=== PATIENT | male | born 1950 | race Caucasian/White ===

== ENCOUNTER → 2016-11-02 | Outpatient (CLI) | payer MEDICARE, BC ==
--- NOTE | 2016-11-02 16:05 | PN ---
Fish is 66, coming in for followup regarding his obstructive sleep apnea. The patient was last seen in my office approximately 6 months ago. He has no specific complaints. He is using CPAP at a pressure of 9 cm of water and the pressure was dropped during his latest this evaluation. He is using a full-face mask, AirFit F10 mask type. He is very compliant with CPAP therapy and he is waking up refreshed and is still benefiting from his treatment. Nevertheless, his machine has not been delivering the appropriate amount of humidity. He is set up for a humidity level up to 5, and despite that the water chamber remains intact and there is no utilization of any humidity; and he is waking up with a dry mouth. His baseline apnea-hypopnea index is 12, and the patient was admitted receiving CPAP therapy at a pressure of 9 cm of water. BP is 116/68. Pulse is 70, respiration 16, temperature 97.9, saturation 98% on room air. Weight is 202. BMI is 32.1. Ney score is 6. GENERAL APPEARANCE: Calm, comfortable. HEENT: Negative for JVD. No goiter or neck masses. Crowding of posterior pharynx. LUNGS: Clear to auscultation. HEART: Sounds are regular rate and rhythm. Normal S1, S2. No S3. No murmurs. ABDOMEN: Soft. No organomegaly. EXTREMITIES: No edema. No cyanosis or clubbing. IMPRESSION: 1. Symptomatic obstructive sleep apnea with an AHI of 12, currently on CPAP pressure of 9 cm of water. 2. Malfunctioning humidity on his CPAP machine with increased dry mouth. 3. Body mass index of 32.1. PLAN: 1. Will ask [facility] to evaluate the patient's CPAP machine. The humidification system is malfunctioning. Will either repair the machine or replace it. 2. Continue using the AirFit F10 full-face mask. 3. Keep the pressure at 9 cm of water. 4. Will check his compliancy within 6 months to a year.
== END | disposition home or self-care (01) ==
LOC: SLEEP 13:09
PROVIDERS: ATTEND Internal Medicine Critical Care Medicine
DX: G47.33 Obstructive sleep apnea (adult) (pediatric) (principal)

== ENCOUNTER → 2018-05-09 | Outpatient (CLI) | payer MEDICARE ==
--- NOTE | 2018-05-09 20:16 | PN ---
PROGRESS NOTE This is a 67-year-old male patient with an established diagnosis of obstructive sleep apnea. The patient has an AHI of 12. He is coming in for a routine check and he has no specific complaints. The patient is using a DreamStation Respironics CPAP unit which is at the pressure of 9 cm of water. He is in need of his equipment. His CPAP humidity chamber needs to be replaced. At the same time he is in need of hose and a new mask. I offered this patient AirFit full face mask which he felt was quite comfortable and this replaced AirFit F10 full-face mask that he has been using for many years. He continues to benefit from the treatment. His weight has been stable. No new onset comorbidities. No other medical problems for now. PHYSICAL EXAMINATION: BP is 155/92, pulse 87, respirations 16, temperature 98, saturation 95% on room air. Weight 210, height is 5 feet 6 inches, BMI 33.8, Yeso score is 6. GENERAL APPEARANCE: Calm, comfortable. Head is atraumatic, normocephalic. Neck is supple. There is no JVD. No goiter or neck mass. LUNGS: Clear to auscultation. Heart sounds are regular rate and rhythm. Normal S1, S2. No S3. No murmurs. Abdomen is soft, nontender. No organomegaly. EXTREMITIES: No edema. No cyanosis or clubbing. IMPRESSION: 1. Obstructive sleep apnea with an AHI of 12 currently utilizing a DreamStation CPAP unit at the pressure of 9 cm of water. 2. Hypersomnia, recovered. Yeso score is low. 3. Obesity, stable weight. PLAN: I reviewed the patient's CPAP supplies. The patient will be given AirFit F20 full face mask. The patient will be given a heated tubing in addition to the filters and the humidification chamber for his DreamStation. He will see me back in followup in a year's time earlier if needed. His treatment is successful for now. MMODL / IJN: [id number] /
== END | disposition home or self-care (01) ==
LOC: SLEEP 13:43
PROVIDERS: ATTEND Internal Medicine Critical Care Medicine
DX: G47.33 Obstructive sleep apnea (adult) (pediatric) (principal); E66.9 Obesity, unspecified; Z68.33 Body mass index [BMI] 33.0-33.9, adult; Z99.89 Dependence on other enabling machines and devices

== ENCOUNTER → 2018-05-29 | Outpatient (CLI) | payer MEDICARE, BC ==
--- NOTE | 2018-05-29 09:02 | US ---
EXAMINATION TYPE: US gallbladder DATE OF EXAM: 05/29/2018 COMPARISON: NONE CLINICAL HISTORY: Abd Pain, R10.84 Gerd K21.9. Patient states having severe heartburn. No surgeries . NPO. EXAM MEASUREMENTS: Liver Length: 16.7 cm Gallbladder Wall: 0.2 cm CBD: 0.3 cm CHD: 0.3 cm Right Kidney: 10.7 x 5.3 x 5.8 cm Pancreas: Obscured by bowel gas Liver: Appears echogenic in appearance. This may be mild to moderate fatty infiltration. Anterior ri ght lobe cystic appearing lesion measures 1.1 x 1.3 x 0.7 cm Gallbladder: wnl Evidence for sonographic Durant's sign: neg CBD: wnl CHD: wnl Right Kidney: Upper pole cystic appearing lesion = 2.1 x 1.9 x 1.5 cm IMPRESSION: 1. Small hepatic cyst with a partial septation with mild to moderate fatty infiltration liver. 2. Superior pole simple right renal cyst
--- NOTE | 2018-05-29 10:15 | FL ---
EXAMINATION TYPE: FL UGI w esophagus DATE OF EXAM: 05/29/2018 COMPARISON: None HISTORY: Gastroesophageal reflux, worsening last week TECHNIQUE: Double air-contrast technique is utilized to evaluate the esophagus and upper gastrointest inal tract. FINDINGS: Esophagus dilates to normal caliber has normal contour to the gastroesophageal junction. Ga stroesophageal junction opens to normal caliber. No hiatal hernia is evident. There is complete stripping of the esophageal bolus in the horizontal drinking position. Note is made of some reflux in the distal third of the esophagus during the examination. There is some tertiary c ontractions present during the examination compatible some mild presbyesophagus. Upper GI: The fundus body and antrum the stomach are well visualized. No extramural defects are evide nt. Some mild gastric fold hypertrophy may be present. A couple of images there is a filling defect a long the greater curvature of the stomach. A small sessile polyp may be present. This could be evalua cleopatra with EGD. There is free spilling of the contrast into the duodenum. Duodenal cap and sweep is in a normal position. Duodenal fold pattern appears normal. Fluoroscopy time: 2 minutes 33 seconds. Images: 27 IMPRESSION: 1. Mild reflux in the distal third of the esophagus. 2. Presbyesophagus. 3. Clinical consideration for mild gastritis. 4. Suggestion of a small sessile polyp in the antrum of the stomach. This could be evaluated with EGD .
== END | disposition home or self-care (01) ==
LOC: RADUSWWP 07:00
PROVIDERS: ATTEND Family Medicine
DX: K21.9 Gastro-esophageal reflux disease without esophagitis (principal); K22.8 Other specified diseases of esophagus; K76.0 Fatty (change of) liver, not elsewhere classified; K76.89 Other specified diseases of liver; N28.1 Cyst of kidney, acquired; Z88.8 Allergy status to other drugs, medicaments and biological substances
CPT/HCPCS: 74240; 76705

== ENCOUNTER 2018-07-27 09:07 | Day surgery (SDC) | payer MEDICARE, BC ==
[2018-07-26 09:41] VITALS: BMI 30.4
[~2018-07-27 09:07] MED LIST: HYDROmorphone 0.5 MG/0.5 ML SYRINGE IVP PRN; LACTATED RINGERS 1,000 ML IV SCH; LIDOCAINE 1% 20 ML VIAL (10MG/ML) FOR IV START INTRADERMA PRN
[2018-07-27 09:29] VITALS: TEMP 97.7
[2018-07-27] MEDS ORDERED: PROPOFOL 10 MG/ML 20 ML VIAL IV ONE (10:06)
[2018-07-27] MEDS ORDERED: LIDOCAINE 1% INJ 10MG/ML (20 ML MDV) ONE (10:06)
--- NOTE | 2018-07-27 10:28 | P.PCN ---
Date of Procedure: 07/27/18 Procedure(s) Performed: Procedure: Esophagogastroduodenoscopy and biopsy. Preoperative diagnosis: Chronic reflux symptoms. Postoperative diagnosis: 1. Mild antral gastritis. 2. Multiple biopsies obtained from the duodenum, antrum and esophagus. Preparation and sedation: Was provided by anesthesia. Brief clinical history: The patient is a 67-year-old male who is scheduled for this evaluation because of chronic reflux symptoms not consistently responding to therapy with Protonix. He has no alarm symptoms. He does have history of coronary atherosclerotic heart disease and had prior CABG surgery. This evaluation is to assess for esophagitis, complicated reflux disease or other pathology. This would be his first upper endoscopy. Procedure: With the patient on his left lateral decubitus position and after informed consent and adequate sedation, I passed the Olympus-GIF 01/18/1990 video upper endoscope through the cricopharyngeus down the esophagus. GE junction was around 40 cm from the incisors and there was no definite hiatal hernia. The esophagus did not show any obvious esophagitis or complicated reflux disease. The endoscope was then passed into the stomach which was insufflated with air and inspected in detail including the retroflex view in the cardia. There was some mottling and erythema in the antrum but no ulcers or erosions. Pyloric channel, duodenal bulb, post bulbar area and descending duodenum appeared within normal limits. Because of his symptoms, I obtained biopsies from the duodenum, antrum and esophagus then the endoscope was withdrawn. The patient tolerated the procedure well. Plan: The patient was reassured. Will await biopsy results. We will continue antireflux diet and measures and maintain acid suppressive therapy as necessary to keep his symptoms under control, especially if the biopsies show evidence of esophagitis. He will follow up with you as planned and I will be happy to see in the office if his symptoms persist.
[2018-07-27 10:40] VITALS: BP 128/80; PULSE 59; RESP 16
== END 2018-07-27 11:00 | disposition home or self-care (01) ==
LOC: ORWHC2ENDO 09:07
DX: K29.50 Unspecified chronic gastritis without bleeding (principal); K21.9 Gastro-esophageal reflux disease without esophagitis; E78.5 Hyperlipidemia, unspecified; I10 Essential (primary) hypertension; I25.10 Atherosclerotic heart disease of native coronary artery without angina pectoris; I25.2 Old myocardial infarction; Z95.1 Presence of aortocoronary bypass graft; Z79.82 Long term (current) use of aspirin; Z79.899 Other long term (current) drug therapy; Z88.8 Allergy status to other drugs, medicaments and biological substances
CPT/HCPCS: 88305; 43239; J2001; J2704

== ENCOUNTER 2024-03-16 13:09 | Observation (INO) | payer MEDICARE, BC ==
[2024-03-16 13:52] LABS: Basophils % (A) 0 %; Eosinophils # (A) 0.3 k/uL (0-0.7); Eosinophils % (A) 4 %; HCT 45.8 % (39.0-53.0); HGB 14.6 gm/dL (13.0-17.5); Lymphocytes # (A) 1.8 k/uL (1.0-4.8); Lymphocytes % (A) 24 %; MCHC 31.9 g/dL (31.0-37.0); MCV 90.7 fL (80.0-100.0); Mean Platelet Volume 7.7; Monocytes # (A) 0.4 k/uL (0-1.0); Monocytes % (A) 6 %; Neutrophils # (A) 4.8 k/uL (1.3-7.7); Neutrophils % (A) 64 %; Platelet Count 271 k/uL (150-450); RBC 5.05 m/uL (4.30-5.90); RDW 13.7 % (11.5-15.5); WBC 7.4 k/uL (3.8-10.6)
--- NOTE | 2024-03-16 14:00 | XR ---
EXAMINATION TYPE: XR chest 2V DATE OF EXAM: 03/16/2024 COMPARISON: 08/22/2014 TECHNIQUE: PA and lateral views submitted. HISTORY: Chest pain FINDINGS: The lungs are clear and there is no pneumothorax, pleural effusion, or focal pneumonia. Heart size normal and no overt failure. Osseous structures demonstrate hypertrophic and degenerative changes of the spine. Post median sternotomy change. IMPRESSION: 1. No acute process. [facility], , 03/16/2024 1:58 PM
[2024-03-16 14:01] LABS: ALT 13 U/L (4-49); AST 20 U/L (17-59); African American GFR (CKD) 80 (>60 ml/min/1.73 sqM); Alkaline Phosphatase 88 U/L (38-126); Anion Gap 5 mmol/L; Blood Urea Nitrogen 22 mg/dL (9-20); Calcium 9.5 mg/dL (8.4-10.2); Carbon Dioxide 25 mmol/L (22-30); Chloride 110 mmol/L (98-107); Glucose 103 mg/dL (74-99); Magnesium 1.9 mg/dL (1.6-2.3); Non-African American GFR(CKD) 70 (>60 ml/min/1.73 sqM); Potassium 4.3 mmol/L (3.5-5.1); Sodium 140 mmol/L (137-145); Total Bilirubin 0.5 mg/dL (0.2-1.3); Total Protein 6.6 g/dL (6.3-8.2)
[2024-03-16 14:16] LABS: INR 0.9 (<1.2); Prothrombin Time 10.2 sec (10.0-12.5)
[2024-03-16] MEDS ORDERED: ACETAMINOPHEN TAB 325 MG TAB PO PRN (14:21)
[2024-03-16] MEDS ORDERED: NALOXONE 0.4 MG/ML 1 ML VIAL IV PRN (14:21)
--- NOTE | 2024-03-16 14:29 | ED ---
General Adult HPI - General Chief complaint: Chest Pain Stated complaint: Chest pain Time Seen by Provider: 03/16/24 14:01 Source: patient, RN notes reviewed, old records reviewed Mode of arrival: ambulatory Limitations: no limitations - History of Present Illness Initial comments: 73-year-old male presenting with substernal chest pain which began this morning. No associated nausea or diaphoresis. Patient has previous history of coronary artery bypass graft in 2007. Patient denies cough or dyspnea. Denies lower extremity pain or swelling. Pain initially began as indigestion has progressed to a dull substernal ache. - Related Data Home Medications Medication Instructions Recorded Confirmed Aspirin [Adult Low Dose Aspirin EC] 81 mg PO DAILY 07/26/18 07/26/18 Famotidine [Pepcid] 20 mg PO DAILY 07/26/18 07/26/18 Metoprolol Tartrate 25 mg PO HS 07/26/18 07/26/18 Metoprolol Tartrate 50 mg PO DAILY 07/26/18 07/26/18 Multivitamins, Thera [Multivitamin 1 each PO DAILY 07/26/18 07/26/18 (formulary)] Pantoprazole Sodium 40 mg PO DAILY 07/26/18 07/26/18 Pravastatin Sodium [Pravachol] 40 mg PO DAILY 07/26/18 07/26/18 lisinopriL [Zestril] 5 mg PO DAILY 07/26/18 07/26/18 Allergies Allergy/AdvReac Type Severity Reaction Status Date / Time Tucqzbx-MHT-OuG Reductase AdvReac "ACHY LEGS" Verified 07/27/18 09:18 Inhibitor [Eedcsqx-Hgg-Yfi Reductase Inhibitor] Review of Systems ROS Statement: Those systems with pertinent positive or pertinent negative responses have been documented in the HPI. ROS Other: All systems not noted in ROS Statement are negative. Past Medical History Past Medical History: Coronary Artery Disease (CAD), GERD/Reflux, Hyperlipidemia, Hypertension, Myocardial Infarction ([place]) Last Myocardial Infarction Date:: 2007 History of Any Multi-Drug Resistant Organisms: None Reported Past Surgical History: Coronary Bypass/CABG Additional Past Surgical History / Comment(s): COLONOSCOPY Past Anesthesia/Blood Transfusion Reactions: No Reported Reaction Past Psychological History: No Psychological Hx Reported Past Alcohol Use History: Occasional Past Drug Use History: None Reported - Past Family History Mother Family Medical History: No Reported History General Exam Limitations: no limitations General appearance: alert, in no apparent distress Head exam: Present: atraumatic, normocephalic Eye exam: Present: normal appearance, PERRL ENT exam: Present: normal exam Neck exam: Present: normal inspection. Absent: tenderness, meningismus Respiratory exam: Present: normal lung sounds bilaterally. Absent: respiratory distress, wheezes Cardiovascular Exam: Present: regular rate, normal rhythm GI/Abdominal exam: Present: soft. Absent: distended, tenderness Extremities exam: Present: normal inspection, normal capillary refill Neurological exam: Present: alert, oriented X3, CN II-XII intact Psychiatric exam: Present: normal affect, normal mood Skin exam: Present: warm, dry, intact. Absent: cyanosis, diaphoretic Course Vital Signs 03/16/24 13:16 Temperature 97.8 F Pulse Rate 63 Respiratory 16 Rate Blood Pressure 148/78 Medical Decision Making - Medical Decision Making Was pt. sent in by a medical professional or institution (, PA, HOME THEATRE TECHNICIAN, urgent care, hospital, or longterm...) When possible be specific @ -No Did you speak to anyone other than the patient for history (EMS, parent, family, police, friend...)? What history was obtained from this source @ -No Did you review nursing and triage notes (agree or disagree)? Why? @ -I reviewed and agree with nursing and triage notes Were old charts reviewed (outside hosp., previous admission, EMS record, old EKG, old radiological studies, urgent care reports/EKG's, longterm records)? Report findings @ -No old charts were reviewed Differential Chest Pain: Stable Angina, Unstable Angina, STEMI, NSTEMI Aortic Dissection, Pneumothorax, Musculoskeletal, Esophageal Spasm GERD, Cholecystitis, Pancreatitis, Zoster, this is not meant to be an all-inclusive list. EKG interpreted by me (3pts min.). @ -[Sinus rhythm rate of 62, [place] interval 140, QRS duration 105, QTc [address] segment elevation. X-rays interpreted by me (1pt min.). @ -Chest x-ray negative for acute cardiopulmonary findings CT interpreted by me (1pt min.). @ -None done U/S interpreted by me (1pt. min.). @ -None done What testing was considered but not performed or refused? (CT, X-rays, U/S, labs)? Why? @ -None What meds were considered but not given or refused? Why? @ -None Did you discuss the management of the patient with other professionals (professionals i.e. , PA, HOME THEATRE TECHNICIAN, lab, RT, psych nurse, social worker masters, hair rooting machine operator, teacher, seismology technical officer, vocational case manager)? Give summary @ -Sound Was smoking cessation discussed for >3mins.? @ -No Was critical care preformed (if so, how long)? @ -No Were there social determinants of health that impacted care today? How? (Homelessness, low income, unemployed, alcoholism, drug addiction, t ransportation, low edu. Level, literacy, decrease access to med. care, [place] [facility], rehab)? @ -No Was there de-escalation of care discussed even if they declined (Discuss DNR or withdrawal of care, Hospice)? DNR status @ -No What co-morbidities impacted this encounter? (DM, HTN, Smoking, COPD, CAD, Cance r, CVA, ARF, Chemo, Hep., AIDS, mental health diagnosis, sleep apnea, morbid obesity)? @ -Coronary artery disease status post CABG in 2007 Was patient admitted / discharged? Hospital course, mention meds given and route, prescriptions, significant lab abnormalities, going to OR and other pertinent info. @ -73-year-old male with substernal chest pain. EKG sinus rhythm without ST segment elevation. Chest x-ray is clear. Normal CBC, normal CMP. Patient given aspirin, will be observed for serial cardiac enzymes, telemetry, cardiology consultation. Case discussed with Dr. King Undiagnosed new problem with uncertain prognosis? @ -No Drug Therapy requiring intensive monitoring for toxicity (Heparin, Nitro, Insulin, Cardizem)? @ -No Were any procedures done? @ -No Diagnosis/symptom? @Chest pain rule out Acute, or Chronic, or Acute on Chronic? @Acute Uncomplicated (without systemic symptoms) or Complicated (systemic symptoms)? @ -Default Side effects of treatment? @ -No Exacerbation, Progression, or Severe Exacerbation? @ -No Poses a threat to life or bodily function? How? (Chest pain, USA, MS, pneumonia, PE, COPD, DKA, ARF, appy, cholecystitis, CVA, Diverticulitis, Homicidal, Suicidal, threat to staff... and all critical care pts) @ -Yes, chest pain - Lab Data Result diagrams: 03/16/24 13:34 03/16/24 13:34 Lab Results 03/16/24 03/16/24 03/16/24 Range/Units 13:34 13:34 13:34 WBC 7.4 (3.8-10.6) k/uL RBC 5.05 (4.30-5.90) m/uL Hgb 14.6 (13.0-17.5) gm/dL Hct 45.8 (39.0-53.0) % MCV 90.7 (80.0-100.0) fL MCH 29.0 (25.0-35.0) pg MCHC 31.9 (31.0-37.0) g/dL RDW 13.7 (11.5-15.5) % Plt Count 271 (150-450) k/uL MPV 7.7 Neutrophils % 64 % Lymphocytes % 24 % Monocytes % 6 % Eosinophils % 4 % Basophils % 0 % Neutrophils # 4.8 (1.3-7.7) k/uL Lymphocytes # 1.8 (1.0-4.8) k/uL Monocytes # 0.4 (0-1.0) k/uL Eosinophils # 0.3 (0-0.7) k/uL Basophils # 0.0 (0-0.2) k/uL PT 10.2 (10.0-12.5) sec INR 0.9 (<1.2) APTT 25.0 (22.0-30.0) sec Sodium 140 (137-145) mmol/L Potassium 4.3 (3.5-5.1) mmol/L Chloride 110 H (98-107) mmol/L Carbon Dioxide 25 (22-30) mmol/L Anion Gap 5 mmol/L BUN 22 H (9-20) mg/dL Creatinine 1.05 (0.66-1.25) mg/dL Est GFR (CKD-EPI)AfAm 80 (>60 ml/min/1.73 sqM) Est GFR (CKD-EPI)NonAf 70 (>60 ml/min/1.73 sqM) Glucose 103 H (74-99) mg/dL Calcium 9.5 (8.4-10.2) mg/dL Magnesium 1.9 (1.6-2.3) mg/dL Total Bilirubin 0.5 (0.2-1.3) mg/dL AST 20 (17-59) U/L ALT 13 (4-49) U/L Alkaline Phosphatase 88 (38-126) U/L Troponin I (0.000-0.034) ng/mL Total Protein 6.6 (6.3-8.2) g/dL Albumin 4.0 (3.5-5.0) g/dL 03/16/24 Range/Units 13:34 WBC (3.8-10.6) k/uL RBC (4.30-5.90) m/uL Hgb (13.0-17.5) gm/dL Hct (39.0-53.0) % MCV (80.0-100.0) fL MCH (25.0-35.0) pg MCHC (31.0-37.0) g/dL RDW (11.5-15.5) % Plt Count (150-450) k/uL MPV Neutrophils % % Lymphocytes % % Monocytes % % Eosinophils % % Basophils % % Neutrophils # (1.3-7.7) k/uL Lymphocytes # (1.0-4.8) k/uL Monocytes # (0-1.0) k/uL Eosinophils # (0-0.7) k/uL Basophils # (0-0.2) k/uL PT (10.0-12.5) sec INR (<1.2) APTT (22.0-30.0) sec Sodium (137-145) mmol/L Potassium (3.5-5.1) mmol/L Chloride (98-107) mmol/L Carbon Dioxide (22-30) mmol/L Anion Gap mmol/L BUN (9-20) mg/dL Creatinine (0.66-1.25) mg/dL Est GFR (CKD-EPI)AfAm (>60 ml/min/1.73 sqM) Est GFR (CKD-EPI)NonAf (>60 ml/min/1.73 sqM) Glucose (74-99) mg/dL Calcium (8.4-10.2) mg/dL Magnesium (1.6-2.3) mg/dL Total Bilirubin (0.2-1.3) mg/dL AST (17-59) U/L ALT (4-49) U/L Alkaline Phosphatase (38-126) U/L Troponin I <0.012 (0.000-0.034) ng/mL Total Protein (6.3-8.2) g/dL Albumin (3.5-5.0) g/dL Disposition Clinical Impression: Chest pain Disposition: ADMITTED IP TO THIS HOSP Condition: Stable Is patient prescribed a controlled substance at d/c from ED?: No Referrals: Cresencio Ramos MD [Primary Care Provider] - 1-2 days Time of Disposition: 14:29
[2024-03-16] MEDS: ASPIRIN 325 MG TAB PO STA (14:50)
[2024-03-16] MEDS ORDERED: SILDENAFIL 20 MG TAB PO PRN (17:17)
[2024-03-16] MEDS: FAMOTIDINE 20 MG TAB PO SCH (17:56)
[2024-03-16] MEDS: PANTOPRAZOLE 40 MG TABLET PO SCH (17:56)
[2024-03-16] MEDS: ENOXAPARIN 40 MG/0.4 ML SYRINGE SQ SCH (17:56)
--- NOTE | 2024-03-16 17:59 | P.HPIM ---
History of Present Illness H&P Date: 03/16/24 History of present illness; Fish Braxton is a 73 year old M with history of quadruple bypass in 2007, hyperlipidemia, hypertension, chronic GERD, BPH, who is presenting with chest pain. Symptoms began suddenly this morning upon waking up. Pain was located centrally to epigastric area, aching in nature without pressure and was nonradiating. Pain is not similar to heartburn or previous [place]. Pain was intermittent with 4 out of 10 severity at worst, and now is a 1 out of 10 severity. He did not try any medications for this pain, and had no triggers or alleviating factors. He reports no other symptoms. He reports absence of palpitations, shortness of breath, cough, nausea, vomiting, diarrhea, abdominal pain, weakness, headache, and dysuria. He has no other complaints at this time. Initial lab work done in the ER showed WBC 7.4, hemoglobin 14.6, platelets 271, PT 10.2, INR 0.9, APTT 25, sodium 140, potassium 4.3, chloride 110, bicarb 25, BUN 22, creatinine 1.05, glucose 103, troponins 2 times<0.012 EKG done in the ER showed heart rate of 62, no ST segment elevation or depression seen, no T-wave inversions seen. Chest x-ray done in the ER showed no acute process Patient admitted to internal medicine service for observation REVIEW OF SYSTEMS: All Systems reviewed, pertinent positives and negatives noted in HPI. All other symptoms are negative. The rest of the 14-point review of systems is negative. PHYSICAL EXAMINATION: GENERAL: The patient is alert and oriented x3, not in any acute distress. Well developed, well nourished. HEENT: Pupils are round and equally reacting to light. EOMI. No scleral icterus. No conjunctival pallor. Normocephalic, atraumatic. No pharyngeal erythema. No thyromegaly. CARDIOVASCULAR: S1 and S2 present. No murmurs, rubs, or gallops. PULMONARY: Chest is clear to auscultation, no wheezing or crackles. ABDOMEN: Soft, nontender, nondistended, normoactive bowel sounds. No palpable organomegaly. MUSCULOSKELETAL: Mild nodular thickening of PIP and DIP. No apparent joint swelling and deformities. EXTREMITIES: No apparent cyanosis, clubbing, or pedal edema. NEUROLOGICAL: Gross neurological examination did not reveal any focal deficits. SKIN: No apparent rashes. Assessment and plan: Fish Braxton is a 73 year old M with history of quadruple bypass in 2007, hyperlipidemia, hypertension, chronic GERD, BPH, who is presenting with chest pain. #Chest pain, ACS rule out -trend troponins, initial troponins 2 times<0.012 -Ordered TSH with reflex T4, HbA1c, Lipid panel -Recent echocardiogram, to obtain from cardiology -given aspirin 325, start 81mg qd continue with home lisinopril 20 mg, metoprolol tartrate 50 mg, pravastatin 40 mg Continue cardiac monitoring -Continue home pantoprazole 40 mg, famotidine 20 mg - consult Cardiology, recommendations appreciated #CAD with history of quadruple coronary bypass in 2007 Obtain recent echo from cardiology Continue home CAD regiment as above #Chronic GERD EGD 2018 findings of mild antral gastritis Continue home therapy as above Chronic Medical Conditions # Essential hypertension -Continue home meds as above #Hyperlidemia -Continue home meds as above #BPH Continue home sildenafil 20 mg as needed F: P.o. E: Replete as needed N: Heart healthy diet E: None DVT ppx: Subq Lovenox Code status: Full code Anticipated discharge place: Pending clinical course Anticipated discharge time: Pending clinical course Monitor vital signs, CBC, CMP Continue telemetry monitoring Continue with symptomatic treatment. Resume home medication. GI prophylaxis as needed. Further recommendations as per clinical course of the patient Dictation was produced using [employer] dictation software. please excuse any grammatical, word or spelling errors. Patient was seen and examined with Dr. Munoz. I agree with the note as documented above. Differentials include GERD/Gastritis (EGD 2020 showed antral gastritis) versus ACS (HEART score moderate risk for major cardiac events). Initial Troponin < 0.012 x 2 with EKG showing sinus rhythm with no ST-T wave changes. Underwent Echo with [facility] recently. Trend Troponin/EKG to rule out ACS. Continue ASA and Metoprolol. Consider switching statin to high intensity. Cardiology consult. Past Medical History Past Medical History: Coronary Artery Disease (CAD), GERD/Reflux, Hyperlipidemia, Hypertension, Myocardial Infarction ([place]) Last Myocardial Infarction Date:: 2007 History of Any Multi-Drug Resistant Organisms: None Reported Past Surgical History: Coronary Bypass/CABG Additional Past Surgical History / Comment(s): COLONOSCOPY Past Anesthesia/Blood Transfusion Reactions: No Reported Reaction Past Psychological History: No Psychological Hx Reported Past Alcohol Use History: Occasional Past Drug Use History: None Reported - Past Family History Mother Family Medical History: No Reported History Medications and Allergies Home Medications Medication Instructions Recorded Confirmed Type Aspirin [Adult Low Dose Aspirin EC] 81 mg PO DAILY 07/26/18 03/16/24 History Famotidine [Pepcid] 20 mg PO DAILY 07/26/18 03/16/24 History Metoprolol Tartrate 25 mg PO HS 07/26/18 03/16/24 History Metoprolol Tartrate 50 mg PO DAILY 07/26/18 03/16/24 History Multivitamins, Thera [Multivitamin 1 tab PO DAILY 07/26/18 03/16/24 History (formulary)] Pantoprazole Sodium 40 mg PO DAILY 07/26/18 03/16/24 History Pravastatin Sodium [Pravachol] 40 mg PO HS 07/26/18 03/16/24 History Sildenafil [Revatio] 20 mg PO DAILY PRN 03/16/24 03/16/24 History lisinopriL [Zestril] 20 mg PO DAILY 03/16/24 03/16/24 History Allergies Allergy/AdvReac Type Severity Reaction Status Date / Time Klxemhf-DQU-HlD Reductase AdvReac "ACHY LEGS" Verified 03/16/24 15:08 Inhibitor [Vdhywpr-Aak-Uel Reductase Inhibitor] Physical Exam Vitals: Vital Signs Temp Pulse Resp BP Pulse Ox 03/16/24 14:50 61 18 138/93 96 03/16/24 13:16 97.8 F 63 16 148/78 Intake and Output 03/16/24 03/16/24 03/16/24 06:59 14:59 22:59 Other: Weight 86.183 kg Results CBC & Chem 7: 03/16/24 13:34 03/16/24 13:34 Labs: Abnormal Lab Results - Last 24 Hours (Table) 03/16/24 Range/Units 13:34 Chloride 110 H (98-107) mmol/L BUN 22 H (9-20) mg/dL Glucose 103 H (74-99) mg/dL
[2024-03-16] MEDS: PRAVASTATIN SODIUM 40 MG TAB PO SCH (20:06)
[2024-03-16] MEDS: METOPROLOL TARTRATE 25 MG TAB PO SCH (20:07)
[2024-03-16 22:49] VITALS: RESP 16
[2024-03-17 02:47] LABS: Chol/HDL Ratio 3.84 Ratio; LDL Cholesterol,Calculated 115.3 mg/dL (0.0-131.0)
[2024-03-17 08:18] VITALS: BP 153/85; PULSE 59; TEMP 97.7
[2024-03-17] MEDS: METOPROLOL TARTRATE 50 MG TAB PO SCH (09:28)
[2024-03-17] MEDS: lisinopriL 20 MG TAB PO SCH (09:31)
[2024-03-17] MEDS: ASPIRIN 81 MG PO SCH (09:31)
[2024-03-17 09:56] LABS: Basophils # (A) 0.08 X 10*3/uL (0.00-0.10); Basophils % (A) 0.9 %; Eosinophils # (A) 0.29 X 10*3/uL (0.04-0.35); Eosinophils % (A) 3.2 %; HCT 42.6 % (39.6-50.0); HGB 13.8 g/dL (13.0-17.0); Lymphocytes # (A) 1.94 X 10*3/uL (0.90-5.00); Lymphocytes % (A) 21.3 %; MCH 28.4 pg (27.0-32.0); MCHC 32.4 g/dL (32.0-37.0); MCV 87.7 FL (80.0-97.0); Mean Platelet Volume 10.6 FL (9.5-12.2); Monocytes # (A) 0.76 X 10*3/uL (0.20-1.00); Monocytes % (A) 8.4 %; NRBC Per 100 WBC 0 X 10*3/uL (0.00-0.01); Neutrophils # (A) 6.01 X 10*3/uL (1.80-7.70); Platelet Count 264 X 10*3/uL (140-440); RBC 4.86 X 10*6/uL (4.40-5.60); RDW 14.1 % (11.5-14.5)
[2024-03-17 11:28] LABS: Blood Urea Nitrogen 17.6 mg/dL (9.0-27.0); Calcium 8.5 mg/dL (8.7-10.3); Chloride 107 mmol/L (96-109); Glucose 105 mg/dL (70-110); Potassium 4.4 mmol/L (3.5-5.5); Sodium 142 mmol/L (135-145)
--- NOTE | 2024-03-17 12:33 | P.CRDCN ---
History of Present Illness Consult date: 03/17/24 Requesting physician: Deon King Reason for Consult (text): chest pain The patient signed AMA before being evaluated by Dr. Boyle Chief complaint: chest discomfort History of present illness: This is a pleasant 73-year-old gentleman with a history of carotid artery stenosis, hyperlipidemia, CAD status post CABG in 2007, hypertension, GERD and ascending aortic aneurysm. He follows in the office with Dr. Belcher. He presented to the emergency room after having woke up yesterday with discomfort in the lower chest and epigastric area the pain was somewhat mild started around 7 AM and at around noon he decided to come to the emergency room. The pain lasted for couple hours after arrival. According to the patient there were no significant aggravating or alleviating factors. He had no nausea, diaphoresis, dizziness, shortness of breath or radiation of the pain. At the time of my examination he is chest pain-free. 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 He denies any lower extremity edema. His most recent echocardiogram from January of this year showed a borderline normal LV systolic function with an ejection fraction of 50 to 55%, mild AI, MR and TR. His last MPI was done in [facility] 2022 that was probably normal with fixed inferior defect felt to be artifact. EKG showed sinus mechanism with Q waves in the inferior leads but no evidence of acute ischemia. Troponins have been negative x 3. LDL is suboptimally controlled at 115 patient has been intolerant to Crestor and at orvastatin in the past and is currently on pravastatin and tolerating this well. Past Medical History Past Medical History: Coronary Artery Disease (CAD), GERD/Reflux, Hyperlipidemia, Hypertension, Myocardial Infarction (OR) Last Myocardial Infarction Date:: 2007 History of Any Multi-Drug Resistant Organisms: None Reported Past Surgical History: Coronary Bypass/CABG Additional Past Surgical History / Comment(s): COLONOSCOPY Past Anesthesia/Blood Transfusion Reactions: No Reported Reaction Past Psychological History: No Psychological Hx Reported Smoking Status: Never smoker Past Alcohol Use History: Occasional Past Drug Use History: None Reported - Past Family History Mother Family Medical History: No Reported History Medications and Allergies Home Medications Medication Instructions Recorded Confirmed Type Aspirin [Adult Low Dose Aspirin EC] 81 mg PO DAILY 07/26/18 03/16/24 History Famotidine [Pepcid] 20 mg PO DAILY 07/26/18 03/16/24 History Metoprolol Tartrate 25 mg PO HS 07/26/18 03/16/24 History Metoprolol Tartrate 50 mg PO DAILY 07/26/18 03/16/24 History Multivitamins, Thera [Multivitamin 1 tab PO DAILY 07/26/18 03/16/24 History (formulary)] Pantoprazole Sodium 40 mg PO DAILY 07/26/18 03/16/24 History Sildenafil [Revatio] 20 mg PO DAILY PRN 03/16/24 03/16/24 History lisinopriL [Zestril] 20 mg PO DAILY 03/16/24 03/16/24 History Atorvastatin [Lipitor] 40 mg PO DAILY #60 tablet 03/17/24 Rx Allergies Allergy/AdvReac Type Severity Reaction Status Date / Time [id number] Reductase AdvReac "ACHY LEGS" Verified 03/16/24 15:08 Inhibitor [Iscjnaj-Uan-Uvq Reductase Inhibitor] Physical Exam Vitals: Vital Signs Temp Pulse Pulse Resp BP BP BP 03/17/24 07:00 97.7 F 59 L 16 153/85 03/17/24 02:00 97.9 F 58 L 16 139/68 03/16/24 22:15 98.2 F 55 L 16 165/63 03/16/24 21:44 57 L 18 150/91 03/16/24 19:24 60 18 140/83 03/16/24 14:50 61 18 138/93 03/16/24 13:16 97.8 F 63 16 148/78 Pulse Ox 03/17/24 07:00 94 L 03/17/24 02:00 98 03/16/24 22:15 99 03/16/24 21:44 98 03/16/24 19:24 97 03/16/24 14:50 96 03/16/24 13:16 Intake and Output 03/16/24 03/17/24 03/17/24 22:59 06:59 14:59 Intake Total 118 Balance 118 Intake: Oral 118 Other: # Voids 1 Weight 86.183 kg PHYSICAL EXAMINATION: This is a 73-year-old male in no apparent distress at the time of my examination. VITAL SIGNS: Reviewed. HEENT: Head is atraumatic, normocephalic. Pupils are equal, round. Sclerae anicteric. Conjunctivae are clear. Mucous membranes of the mouth are moist. Neck is supple. There is no elevated jugular venous pressure. No carotid bruit is heard. CHEST EXAMINATION: Clear to auscultation bilaterally. No wheezes rales or rhon chi. Respirations even and nonlabored. HEART EXAMINATION: Heart regular, positive S1 and S2. No S3. No S4. No clicks, rubs or murmurs. ABDOMEN: Soft, nontender. Bowel sounds are heard. No organomegaly noted. EXTREMITIES: 2+ peripheral pulses with no evidence of peripheral edema and no calf tenderness noted. NEUROLOGIC EXAMINATION: Patient is awake, alert and oriented x3. Results 03/17/24 05:03 03/17/24 05:03 Cardiac Enzymes 03/16/24 03/16/24 03/16/24 Range/Units 13:34 13:34 16:06 AST 20 (17-59) U/L Troponin I <0.012 <0.012 (0.000-0.034) ng/mL 03/16/24 Range/Units 19:30 AST (17-59) U/L Troponin I <0.012 (0.000-0.034) ng/mL Coagulation 03/16/24 Range/Units 13:34 PT 10.2 (10.0-12.5) sec APTT 25.0 (22.0-30.0) sec Lipids 03/16/24 Range/Units 19:30 Triglycerides 119.00 (0.00-149.00) mg/dL Cholesterol 188.00 (0.00-200.00) mg/dL HDL Cholesterol 48.90 (40.00-60.00) mg/dL Cholesterol/HDL Ratio 3.84 Ratio CBC 03/16/24 Range/Units 13:34 WBC 7.4 (3.8-10.6) k/uL RBC 5.05 (4.30-5.90) m/uL Hgb 14.6 (13.0-17.5) gm/dL Hct 45.8 (39.0-53.0) % Plt Count 271 (150-450) k/uL Comprehensive Metabolic Panel 03/16/24 Range/Units 13:34 Sodium 140 (137-145) mmol/L Potassium 4.3 (3.5-5.1) mmol/L Chloride 110 H (98-107) mmol/L Carbon Dioxide 25 (22-30) mmol/L BUN 22 H (9-20) mg/dL Creatinine 1.05 (0.66-1.25) mg/dL Glucose 103 H (74-99) mg/dL Calcium 9.5 (8.4-10.2) mg/dL AST 20 (17-59) U/L ALT 13 (4-49) U/L Alkaline Phosphatase 88 (38-126) U/L Total Protein 6.6 (6.3-8.2) g/dL Albumin 4.0 (3.5-5.0) g/dL Current Medications Generic Name Dose Route Start Last Admin Trade Name Freq PRN Reason Stop Dose Admin Acetaminophen 650 mg 03/16/24 14:21 Acetaminophen Tab 325 Mg Tab PO Q6HR PRN Mild Pain or Fever > 100.5 Aspirin 81 mg 03/17/24 09:00 Aspirin 81 Mg PO DAILY [facility] Enoxaparin Sodium 40 mg 03/16/24 17:15 03/16/24 17:56 Enoxaparin 40 Mg/0.4 Ml Syringe SQ 40 mg DAILY [facility] Administration Famotidine 20 mg 03/16/24 17:30 03/16/24 17:56 Famotidine 20 Mg Tab PO 20 mg DAILY [facility] Administration Lisinopril 20 mg 03/17/24 09:00 Lisinopril 20 Mg Tab PO DAILY [facility] Metoprolol Tartrate 25 mg 03/16/24 21:00 03/16/24 20:07 Metoprolol Tartrate 25 Mg Tab PO Not Given HS [facility] Metoprolol Tartrate 50 mg 03/17/24 09:00 Metoprolol Tartrate 50 Mg Tab PO DAILY [facility] Naloxone HCl 0.2 mg 03/16/24 14:21 Naloxone 0.4 Mg/Ml 1 Ml Vial IV Q2M PRN Opioid Reversal Pantoprazole Sodium 40 mg 03/16/24 17:30 03/17/24 05:57 Pantoprazole 40 Mg Tablet PO 40 mg DAILY@0730 [facility] Administration Pravastatin Sodium 40 mg 03/16/24 21:00 03/16/24 20:06 Pravastatin Sodium 40 Mg Tab PO 40 mg HS [facility] Administration Intake and Output 03/16/24 03/17/24 03/17/24 22:59 06:59 14:59 Intake Total 118 Balance 118 Intake: Oral 118 Other: # Voids 1 Weight 86.183 kg 03/16/24 13:34 03/16/24 13:34 Assessment and Plan Assessment: 1 chest discomfort, seem to be more epigastric, acute coronary event has been ruled out #2 CAD with prior CABG #3 hypertension #4 hyperlipidemia #5 intolerance to high intensity statins #6 carotid artery disease #7 ascending aortic aneurysm Plan: From cardiology's perspective patient may be discharged home and follow-up with Dr. Belcher. Would recommend possibly adding ezetimibe to better control the LDL. Patient will monitor the blood pressure at home and depending on his readings further adjustments will be made to his regimen. [employer]NAGER note has been reviewed, I agree with a documented findings and plan of care. Patient was seen and examined.
--- NOTE | 2024-03-17 13:58 | P.DS ---
Providers Date of admission: 03/16/24 14:22 Expected date of discharge: 03/17/24 Attending physician: Deon King Consults: 03/16/24 14:21 Consult Physician Routine Consulting Provider: Blayne Amezcua Consult Reason/Comments: CP Do you want consulting provider notified?: Yes Primary care physician: Cresencio Ramos [facility] Course: Discharge diagnoses; #Chest pain, ACS ruled out, likely GI related #CAD with history of quadruple coronary bypass in 2007 #Chronic GERD # Essential hypertension #Hyperlidemia #BPH Hospital course; History of present illness; Fish Braxton is a 73 year old M with history of quadruple bypass in 2007, hyperlipidemia, hypertension, chronic GERD, BPH, who is presenting with chest pain. Symptoms began suddenly this morning upon waking up. Pain was located centrally to epigastric area, aching in nature without pressure and was nonradiating. Pain is not similar to heartburn or previous IN. Pain was intermittent with 4 out of 10 severity at worst, and now is a 1 out of 10 severity. He did not try any medications for this pain, and had no triggers or alleviating factors. He reports no other symptoms. He reports absence of palpi tations, shortness of breath, cough, nausea, vomiting, diarrhea, abdominal pain, weakness, headache, and dysuria. He has no other complaints at this time. Initial lab work done in the ER showed WBC 7.4, hemoglobin 14.6, platelets 271, PT 10.2, INR 0.9, APTT 25, sodium 140, potassium 4.3, chloride 110, bicarb 25, BUN 22, creatinine 1.05, glucose 103, troponins 2 times<0.012 EKG done in the ER showed heart rate of 62, no ST segment elevation or depression seen, no T-wave inversions seen. Chest x-ray done in the ER showed no acute process During his stay patient was monitored for chest pain. TSH was WNL, HbA1c 6.0, lipid panel were essentially WNL, with LDL 115. His home heart treatment regiment was continued. Cardiology was consulted and recommended adding ezetimibe to better control LDL, and ruled out ACS, more likely epigastric pain. LDL was taken lipid panel was from evening. Patient is discharged to home in stable condition. He is discharged with atorv astatin 40 mg. He is to follow-up with primary care and cardiology Dr. Belcher in 1 week. PHYSICAL EXAMINATION: GENERAL: The patient is alert and oriented x3, not in any acute distress. Well developed, well nourished. HEENT: Pupils are round and equally reacting to light. EOMI. No scleral icterus. No conjunctival pallor. Normocephalic, atraumatic. No pharyngeal erythema. No thyromegaly. CARDIOVASCULAR: S1 and S2 present. No murmurs, rubs, or gallops. PULMONARY: Chest is clear to auscultation, no wheezing or crackles. ABDOMEN: Soft, nontender, nondistended, normoactive bowel sounds. No palpable organomegaly. MUSCULOSKELETAL: Mild nodular thickening of PIP and DIP. No apparent joint swelling and deformities. EXTREMITIES: No apparent cyanosis, clubbing, or pedal edema. NEUROLOGICAL: Gross neurological examination did not reveal any focal deficits. SKIN: No apparent rashes. Dictation was produced using [employer] dictation software. please excuse any grammatical, word or spelling errors. A total of 33 minutes of time were spent preparing this complex discharge summary. Patient was discharged on 03/17/2024 at 13 00. I have seen and evaluated the patient today. Discussed with the resident and agree with the residents finding and plan as documented in the resident's note. Changes highlighted in blue font. Patient Condition at Discharge: Stable Plan - Discharge Summary Discharge Rx Participant: No New Discharge Prescriptions: New Atorvastatin [Lipitor] 40 mg PO DAILY #60 tablet Continue Pantoprazole Sodium 40 mg PO DAILY Metoprolol Tartrate 25 mg PO HS Metoprolol Tartrate 50 mg PO DAILY Famotidine [Pepcid] 20 mg PO DAILY Multivitamins, Thera [Multivitamin (formulary)] 1 tab PO DAILY Aspirin [Adult Low Dose Aspirin EC] 81 mg PO DAILY lisinopriL [Zestril] 20 mg PO DAILY Sildenafil [Revatio] 20 mg PO DAILY PRN PRN Reason: E.D Discontinued Pravastatin Sodium [Pravachol] 40 mg PO HS Discharge Medication List Aspirin [Adult Low Dose Aspirin EC] 81 mg PO DAILY 07/26/18 [History] Famotidine [Pepcid] 20 mg PO DAILY 07/26/18 [History] Metoprolol Tartrate 25 mg PO HS 07/26/18 [History] Metoprolol Tartrate 50 mg PO DAILY 07/26/18 [History] Multivitamins, Thera [Multivitamin (formulary)] 1 tab PO DAILY 07/26/18 [History] Pantoprazole Sodium 40 mg PO DAILY 07/26/18 [History] Sildenafil [Revatio] 20 mg PO DAILY PRN 03/16/24 [History] lisinopriL [Zestril] 20 mg PO DAILY 03/16/24 [History] Atorvastatin [Lipitor] 40 mg PO DAILY #60 tablet 03/17/24 [Rx] Follow up Appointment(s)/Referral(s): Cresencio Ramos MD [Primary Care Provider] - 1-2 days Juan José Belcher DO [STAFF PHYSICIAN] - 1 Week Patient Instructions/Handouts: Chest Pain (DC) Activity/Diet/Wound Care/Special Instructions: Please see your PCP and cardiology. Discharge Disposition: HOME SELF-CARE
== END 2024-03-17 12:10 | disposition home or self-care (01) ==
LOC: EC 13:09 → 6NMEDSUR 14:22
PROVIDERS: ADMIT Student in an Organized Health Care Education/Training Program; ATTEND Student in an Organized Health Care Education/Training Program
DX: R07.2 Precordial pain (principal); E78.5 Hyperlipidemia, unspecified; I10 Essential (primary) hypertension; I25.10 Atherosclerotic heart disease of native coronary artery without angina pectoris; K21.9 Gastro-esophageal reflux disease without esophagitis; N40.0 Benign prostatic hyperplasia without lower urinary tract symptoms; I65.29 Occlusion and stenosis of unspecified carotid artery; I71.21 Aneurysm of the ascending aorta, without rupture; I25.2 Old myocardial infarction; Z79.82 Long term (current) use of aspirin; Z79.899 Other long term (current) drug therapy; Z95.1 Presence of aortocoronary bypass graft; Z88.8 Allergy status to other drugs, medicaments and biological substances; Z87.19 Personal history of other diseases of the digestive system
CPT/HCPCS: 36415; 71046; 80048; 80053; 80061; 83036; 83735; 84443; 84484; 85025; 85610; 85730; 93005; 96372; 99285

== ENCOUNTER → 2024-04-06 | Outpatient (CLI) | payer MEDICARE, BC ==
--- NOTE | 2024-04-06 11:29 | MR ---
EXAMINATION TYPE: MR Prostate wo/w con DATE OF EXAM: 04/06/2024 9:52 AM COMPARISON: None. CLINICAL INDICATION: Male, 73 years old with history of R97.20 ELEVATED PSA; Elevated PSA. TECHNIQUE: Multi-planar, multi-sequence imaging of the pelvis is performed prior to and following the uncomplicated administration of bolus intravenous gadolinium. CONTRAST: 9 [employer]ist Interpretive Criteria: PI-RADS v2.1 SERUM PSA: - = 5.87 8- = 7.9 SURGICAL PATHOLOGY: No data available. FINDINGS: Prostatic dimensions: 5.3 x 6.9 x 4.8 cm. Ellipsoid Volume:91.91 (PSA density=0.09 ng/mL/mL) CENTRAL GLAND (Central and Transition Zones/CZ+TZ): Multiple bilateral, heterogenous appearing hypertrophic stromal nodules, without suspicious lesion. M edian lobe hypertrophy with protrusion into the base of the bladder. (PI-RADS 2) PERIPHERAL ZONE (PZ): Bilateral linear, indistinct wedgelike areas of low ADC, and low T2 signal, No evidence of masslike a bnormality, or localized perfusional hypervascularity, to further suggest a focus of clinically signi ficant prostate cancer. (PI-RADS 2) SEMINAL VESICLES (SV): Symmetric and unremarkable. PERIPROSTATIC TISSUES: Unremarkable. LYMPH NODES: No enlarged pelvic lymph node. REMAINING PELVIS: Trabeculated bladder wall likely secondary to chronic bladder outlet obstruction. No abnormal free or organized intrapelvic fluid collection. No pathologic bowel dilation or mural thickening. Colonic diverticula are present. Bilateral fat containing inguinal hernias. Trace bilateral hydroceles. OSSEOUS STRUCTURES: No suspicious osseous abnormality. IMPRESSION: 1. No specific features for high-risk prostate cancer. Maximum PI-RADS score: 2. 2. Substantial BPH, estimated gland volume 91.91 mL. 3. No suspicious osseous lesion. No lymphadenopathy. No evidence of prostate adenocarcinoma involving the periprostatic tissues. [facility], , 04/06/2024 11:27 AM
== END | disposition home or self-care (01) ==
LOC: RADMRIMAIN 08:42
PROVIDERS: ATTEND Urology
CPT/HCPCS: 72197